=== PATIENT | male | born 1970 | race Caucasian/White ===

== ENCOUNTER 2022-04-13 09:46 | Emergency (ER) | payer BC, SELFPAY ==
[2022-04-13] MEDS ORDERED: Orphenadrine Citrate 60 MG/2 ML VIAL ONE (10:31)
[2022-04-13] MEDS ORDERED: Ketorolac Tromethamine 30 MG/ML VIAL ONE (10:31)
== END 2022-04-13 10:42 | disposition home or self-care (01) ==
LOC: MADERS 09:46
DX: M54.50 Low back pain, unspecified (principal); F17.210 Nicotine dependence, cigarettes, uncomplicated; X50.0XXA Overexertion from strenuous movement or load, initial encounter; Y93.F2 Activity, caregiving, lifting
CPT/HCPCS: 96372; 99283; J1885; J2360

== ENCOUNTER 2022-04-29 11:03 | Outpatient (CLI) | payer BC | END 2022-04-29 11:04 | disposition home or self-care (01) | LOC: MADRAD 11:03 | PROVIDERS: ATTEND Neurological Surgery | DX: M47.816 Spondylosis without myelopathy or radiculopathy, lumbar region (principal); M43.16 Spondylolisthesis, lumbar region | CPT/HCPCS: 72120 ==